=== PATIENT | female | born 1980 | race Caucasian/White ===

== ENCOUNTER 2017-07-16 10:09 | Emergency (ER) | payer OTHER ==
[~2017-07-16] VITALS: Ht 167.6 cm; Wt 73.2 kg
[~2017-07-16 10:09] MED LIST: LITHIUM CARBON300 MG PO; LITHIUM CARBON600 MG PO; TOPAMAX100 MG PO; VISTARIL25 M1 PO
[2017-07-16 11:11] LABS: HEMATOCRIT 40.6 % (36.0-46.0); MCH 31.3 PG (29.0-34.0); MCHC 34.5 G/DL (30.0-36.0); MCV 90.8 FL (83-99); PLATELET COUNT 337 K/uL (156-360); RBC DIS.WIDTH-CV 12.6 % (11.8-14.6); RBC DIS.WIDTH-SD 41.8 % (39-53); RED BLOOD COUNT 4.47 M/uL (3.80-5.20); WHITE BLOOD COUNT 7.7 K/uL (4.1-10.2)
[2017-07-16 11:22] LABS: CHLORIDE 109 mEq/L (99-109); POTASSIUM 3.9 mEq/L (3.7-5.4); SODIUM 140 mEq/L (136-147)
[2017-07-16 11:23] LABS: GLUCOSE 82 mg/dL (70-99)
[2017-07-16 11:27] LABS: CREATININE 0.8 mg/dL (0.6-1.3); GFR ESTIMATE (CALCULATED) > 59 mL/min/
[2017-07-16 11:28] LABS: UREA NITROGEN (BUN) 10 mg/dL (9-23)
[2017-07-16 11:34] LABS: TROP-I INTERPRETATION NEGATIVE; TROPONIN-I < 0.01 ng/mL (0.0-0.30)
[2017-07-16 13:54] VITALS: BP 105/79
== END 2017-07-16 13:55 | disposition home or self-care (01) ==
LOC: EME 10:09
DX: R07.89 Other chest pain (principal); F43.9 Reaction to severe stress, unspecified; R06.02 Shortness of breath; R20.2 Paresthesia of skin; Z63.4 Disappearance and death of family member; Z72.0 Tobacco use
CPT/HCPCS: 71046; 80048; 84484; 85027; 93005; 99281; 99284